=== PATIENT | female | born 1970 | race Caucasian/White ===

== ENCOUNTER 2017-05-12 05:56 | Day surgery (SDC) | payer OTHER ==
[~2017-05-12] VITALS: Ht 175.3 cm; Wt 90.7 kg
[2017-05-12] MEDS ORDERED: ONDANSETRON 4 MG/2 ML VIAL ONE (08:40)
[2017-05-12] MEDS ORDERED: SEVOFLURANE 250 ML BTL INH ONE (08:40)
[2017-05-12] MEDS ORDERED: DEXAMETHASONE 4 MG/ML VIAL ONE (08:40)
[2017-05-12] MEDS ORDERED: PROPOFOL 200 MG/20 ML VIAL IV ONE (08:40)
[2017-05-12] MEDS ORDERED: fentaNYL 0.05 MG/ML VIAL ONE (08:48)
[2017-05-12] MEDS ORDERED: MIDAZOLAM 2 MG/2 ML VIAL ONE (08:48)
[2017-05-12] MEDS ORDERED: MEPERIDINE 25 MG/ML SYR ONE (08:48)
[2017-05-12] MEDS ORDERED: LACTATED RINGERS 1,000 ML IV SCH (08:54)
[2017-05-12] MEDS ORDERED: MEPERIDINE 25 MG/ML SYR IVP PRN (08:55)
[2017-05-12] MEDS ORDERED: ONDANSETRON 4 MG/2 ML VIAL IVP PRN ×2 (08:55→09:00)
[2017-05-12] MEDS ORDERED: HYDROmorphone 1 MG/ML AMP IVP PRN (08:55)
[2017-05-12] MEDS ORDERED: diphenhydrAMINE 50 MG/ML VIAL IVP PRN (08:55)
[2017-05-12] MEDS ORDERED: ACETAMINOPHEN/CODEINE 300/30MG 1 TAB PO PRN (09:00)
[2017-05-12] MEDS ORDERED: IBUPROFEN 800 MG TAB PO PRN (09:00)
[2017-05-12] MEDS ORDERED: MORPHINE SULFATE 4 MG/ML SYR IM/IVP PRN (09:00)
== END 2017-05-12 10:35 | disposition home or self-care (01) ==
LOC: MDS 05:56 → MMU 05:59 → MDS 10:35
PROVIDERS: ATTEND Obstetrics & Gynecology
DX: N92.1 Excessive and frequent menstruation with irregular cycle (principal); K21.9 Gastro-esophageal reflux disease without esophagitis; F17.210 Nicotine dependence, cigarettes, uncomplicated; Z90.49 Acquired absence of other specified parts of digestive tract
CPT/HCPCS: 58120; 93005; J2175; J2250; J3010; J7120; J1100; J2405; J2704